=== PATIENT | female | born 1980 | race African-American/Black ===

== ENCOUNTER 2018-02-26 14:16 | Emergency (ER) | payer SELFPAY | END 2018-02-26 15:55 | disposition home or self-care (01) | LOC: ER 14:16 | DX: S69.91XA Unspecified injury of right wrist, hand and finger(s), initial encounter (principal); X58.XXXA Exposure to other specified factors, initial encounter; Y93.89 Activity, other specified; Y99.8 Other external cause status; Y92.89 Other specified places as the place of occurrence of the external cause | CPT/HCPCS: 73140; 99284 ==